=== PATIENT | male | born 1975 | race Caucasian/White ===

== ENCOUNTER 2018-09-22 06:41 | Emergency (ER) | payer OTHER ==
[~2018-09-22] VITALS: Ht 167.6 cm; Wt 117.5 kg
[~2018-09-22 06:41] MED LIST: DEXT30CA6 PO; HYDR-3165 PO; ONDA4TAB10 PO
[2018-09-22] MEDS ORDERED: IV NORMAL SALINE 1,000ML 1,000 ML IV SCH (06:57)
[2018-09-22] MEDS ORDERED: FAMOTIDINE 20 MG/2 ML VIAL IVP ONE (07:00)
[2018-09-22] MEDS ORDERED: ONDANSETRON PF 4 MG/2 ML VIAL. IV ONE (07:00)
[2018-09-22] MEDS ORDERED: LIDO:MAALOX 1:1 20 ML SINGLE DOSE. PO ONE (07:00)
--- NOTE | 2018-09-22 07:07 | PHYS DOC ---
Past History Past Medical History: Other Past Surgical History: No Surgical History Smoking: Non-smoker Alcohol Use: Rarely Drug Use: None Adult General Chief Complaint Chief Complaint: ABDOMINAL PAIN [facility] HPI Patient is a 42 year old male who presents with complaining of abdominal pain and nausea and vomiting and diarrhea. Patient complaining of constant epigastric pain since this morning with one episode of vomiting and 2 episodes of diarrhea. Patient states the pain is a constant pain with radiation to shoulder. Patient rated his pain 8/10. Patient states he had a greasy food last night. Patient denies urinary symptoms, chest pain, shortness of breath, fever and chills. Patient states he had previous evaluation for gastritis with EGD but he is not sure if he had gallbladder ultrasound. Review of Systems Review of Systems Constitutional: Denies fever or chills [] Eyes: Denies change in visual acuity, redness, or eye pain [] HENT: Denies nasal congestion or sore throat [] Respiratory: Denies cough or shortness of breath [] Cardiovascular: No additional information not addressed in HPI [] GI: Reports abdominal pain, nausea, vomiting, diarrhea [] : Denies dysuria or hematuria [] Musculoskeletal: Denies back pain or joint pain [] Integument: Denies rash or skin lesions [] Neurologic: Denies headache, focal weakness or sensory changes [] Endocrine: Denies polyuria or polydipsia [] All other systems were reviewed and found to be within normal limits, except as documented in this note. Current Medications Current Medications Current Medications Medications (Trade) Dose Ordered Sig/Ariana Start Time Stop Time Status Last Admin Dose Admin Famotidine (Pepcid Vial) 20 mg 1X ONCE 09/22/18 07:00 09/22/18 07:01 DC Multi-Ingredient Mouthwash/Gargle (Gi Cocktail) 20 ml 1X ONCE 09/22/18 07:00 09/22/18 07:01 DC Ondansetron HCl (Zofran) 4 mg 1X ONCE 09/22/18 07:00 09/22/18 07:01 DC Sodium Chloride 1,000 ml @ 1,000 mls/hr Q1H 09/22/18 06:57 09/22/18 07:56 Allergies Allergies Allergies Coded Allergies Type Severity Reaction Last Updated Verified No Known Drug Allergies 07/06/14 No Physical Exam Physical Exam Constitutional: Well developed, well nourished, moderate distress, non-toxic appearance, morbidly obese. [] HENT: Normocephalic, atraumatic, oropharynx moist, no oral exudates, nose normal. [] Eyes: PERRLA, EOMI, conjunctiva normal, no discharge. [] Neck: Normal range of motion, no tenderness, supple, no stridor. [] Cardiovascular:Heart rate regular rhythm, no murmur [] Lungs & Thorax: Bilateral breath sounds clear to auscultation [] Abdomen: Bowel sounds normal, soft, no tenderness, epigastric guarding, no masses, no pulsatile masses. [] Skin: Warm, dry, no erythema, no rash. [] Back: No tenderness, no CVA tenderness. [] Extremities: No tenderness, no cyanosis, no clubbing, ROM intact, no edema. [] Neurologic: Alert and oriented X 3, normal motor function, normal sensory function, no focal deficits noted. [] Psychologic: Affect normal, judgement normal, mood normal. [] EKG EKG [] Radiology/Procedures Radiology/[place] [address] IMAGING REPORT Signed PATIENT: GINNA ROMAN ACCOUNT: [id number] : 1975 LOCATION: ER AGE: 42 SEX: M EXAM STATUS: REG ER ORD. PHYSICIAN: SERA CHAN MD REASON: abdominal pain and nausea and vomiting PROCEDURE: ABDOMEN LTD Limited abdominal ultrasound History: abd pain/n/v Findings: Liver is enlarged with coarse echogenicity, compatible with fatty infiltration. This does limit evaluation for hepatic mass. Pancreas not seen. Inferior vena cava not seen. The structures are secured by bowel gas. Gallbladder is poorly distended, no definite gallstone. Common bile duct is obscured by bowel gas. Right kidney measures 11.7 cm without hydronephrosis. IMPRESSION: 1. Hepatomegaly with steatosis. 2. Poor visualization of midline structures due to bowel gas. 3. Limited gallbladder evaluation due to contracted state. No definite gallstone. Electronically signed by: Jose Holloway MD (09/22/2018 9:36 AM) [facility] DICTATED AND SIGNED BY: JOSE HOLLOWAY MD DATE: 09/22/18 0936 CC: SERA CHAN MD; SHAW MCGARRY ~ Course & Med Decision Making Course & Med Decision Making Pertinent Labs and Imaging studies reviewed. (See chart for details) Evaluation of patient in ER showed 42-year-old male patient with complaining of abdominal pain and nausea and vomiting since this morning. Patient treated with IV fluids and GI cocktail, Zofran, Reglan, fentanyl and Toradol and felt better. Gallbladder ultrasound did not show stone. Plan to discharge patient home to diagnose of gastroenteritis. Dragon Disclaimer Dragon Disclaimer This electronic medical record was generated, in whole or in part, using a voice recognition dictation system. Departure Departure: Impression: Primary Impression: Acute gastroenteritis Additional Impressions: Dehydration Elevated liver function tests Fatty liver Morbid obesity with BMI of 40.0-44.9, adult Disposition: 01 HOME, SELF-CARE (at 0936) Condition: IMPROVED Referrals: SHAW MCGARRY (PCP) Patient Instructions: Viral Gastroenteritis Additional Instructions: Drink plenty of liquids Follow-up with your primary care physician in 3-5 days Return to ER if not getting better Do not eat solid food today Scripts Ranitidine Hcl (ZANTAC) 150 Mg Tablet 1 TAB PO BID for dyspepcia, #14 TAB 0 Refills Prov: SERA CHAN MD 09/22/18 Tramadol Hcl (ULTRAM) 50 Mg Tablet 50 MG PO PRN Q6HRS PRN for PAIN, #14 TAB Prov: SERA CHAN MD 09/22/18 Problem Qualifiers SERA CHAN MD Sep 22, 2018 07:07
[2018-09-22 07:25] LABS: BASO # 0.1 x10^3/uL (0.0-0.2); BASO % 1 % (0-3); EOS # 0.2 x10^3/uL (0.0-0.7); EOS % 2 % (0-3); HEMATOCRIT 54.6 % (39.0-53.0); HEMOGLOBIN 18.5 g/dL (13.0-17.5); LYMPH # 1.5 x10^3/uL (1.0-4.8); LYMPH % 17 % (24-48); MEAN CORPUSCULAR HEMOGLOBIN 30 pg (25-35); MEAN CORPUSCULAR HGB CONC 34 g/dL (31-37); MEAN CORPUSCULAR VOLUME 87 fL (79-100); MONO # 1.2 x10^3/uL (0.0-1.1); MONO % 13 % (0-9); NEUT # 6.1 x10^3uL (1.8-7.7); NEUT % 67 % (31-73); PLATELET COUNT 200 x10^3/uL (140-400); RED BLOOD COUNT 6.25 x10^6/uL (4.30-5.70); RED CELL DISTRIBUTION WIDTH 13.6 % (11.5-14.5); WHITE BLOOD COUNT 9.1 x10^3/uL (4.0-11.0)
[2018-09-22 07:37] LABS: ALBUMIN 3.9 g/dL (3.4-5.0); ALBUMIN/GLOBULIN RATIO 1.1 (1.0-1.7); CALCIUM 8.6 mg/dL (8.5-10.1); CREATININE 1.1 mg/dL (0.7-1.3); GFR 73.8; POTASSIUM 4.1 mmol/L (3.5-5.1); TOTAL BILIRUBIN 0.5 mg/dL (0.2-1.0); TOTAL PROTEIN 7.4 g/dL (6.4-8.2)
[2018-09-22] MEDS ORDERED: TRAM-48 PO (08:00)
[2018-09-22] MEDS ORDERED: RANI150T21 PO (08:00)
[2018-09-22] MEDS ORDERED: KETOROLAC 30 MG/ML VIAL. IV ONE (08:00)
[2018-09-22] MEDS ORDERED: IV NORMAL SALINE 1,000ML 1,000 ML IV ONE (08:15)
[2018-09-22] MEDS ORDERED: METOCLOPRAMIDE HCL 10 MG/2 ML VIAL. IV ONE (08:15)
[2018-09-22 08:41] LABS: BACTERIA,URINE FEW /HPF (0-FEW); BILIRUBIN,URINE NEG (NEG); CLARITY,URINE CLEAR; COLOR,URINE AMBER; GLUCOSE,URINE NEG (NEG); NITRITE,URINE NEG (NEG); RBC,URINE OCC /HPF (0-2); SQUAMOUS EPITHELIAL CELL,UR FEW /LPF; UROBILINOGEN,URINE 0.2 mg/dL (0.2 mg/dL)
--- NOTE | 2018-09-22 09:39 | RAD ---
Limited abdominal ultrasound History: abd pain/n/v Findings: Liver is enlarged with coarse echogenicity, compatible with fatty infiltration. This does limit evaluation for hepatic mass. Pancreas not seen. Inferior vena cava not seen. The structures are secured by bowel gas. Gallbladder is poorly distended, no definite gallstone. Common bile duct is obscured by bowel gas. Right kidney measures 11.7 cm without hydronephrosis. IMPRESSION: 1. Hepatomegaly with steatosis. 2. Poor visualization of midline structures due to bowel gas. 3. Limited gallbladder evaluation due to contracted state. No definite gallstone. Electronically signed by: Jose Holloway MD (09/22/2018 9:36 AM) [facility]
[2018-09-22 09:41] VITALS: BP 121/60
== END 2018-09-22 09:58 | disposition home or self-care (01) ==
LOC: ER 06:41
DX: K52.9 Noninfective gastroenteritis and colitis, unspecified (principal); E86.0 Dehydration; R79.89 Other specified abnormal findings of blood chemistry; K76.0 Fatty (change of) liver, not elsewhere classified; E66.01 Morbid (severe) obesity due to excess calories; Z68.41 Body mass index [BMI] 40.0-44.9, adult
CPT/HCPCS: 36415; 76705; 80053; 81001; 83690; 84484; 85025; 96361; 96374; 96375; 96376; 99284; J1885; J2405; J2765; J3010; J3490; J7030

== ENCOUNTER 2018-10-18 06:51 | Emergency (ER) | payer OTHER ==
[~2018-10-18] VITALS: Ht 167.6 cm; Wt 116.5 kg
[~2018-10-18 06:51] MED LIST changes: +RANI150T21 PO; +TRAM-48 PO
[2018-10-18] MEDS ORDERED: IV NORMAL SALINE 1,000ML 1,000 ML IV ONE (07:15)
[2018-10-18] MEDS ORDERED: ONDANSETRON PF 4 MG/2 ML VIAL. IV ONE (07:15)
[2018-10-18] MEDS ORDERED: MORPHINE SULFATE 4 MG/ML DISP.SYRIN. IV ONE (07:30)
[2018-10-18 07:48] LABS: BASO # 0.1 x10^3/uL (0.0-0.2); BASO % 1 % (0-3); EOS # 0.7 x10^3/uL (0.0-0.7); EOS % 7 % (0-3); HEMATOCRIT 53.5 % (39.0-53.0); HEMOGLOBIN 18.4 g/dL (13.0-17.5); LYMPH # 2.6 x10^3/uL (1.0-4.8); LYMPH % 27 % (24-48); MEAN CORPUSCULAR HEMOGLOBIN 30 pg (25-35); MEAN CORPUSCULAR HGB CONC 34 g/dL (31-37); MEAN CORPUSCULAR VOLUME 87 fL (79-100); MONO # 0.9 x10^3/uL (0.0-1.1); MONO % 10 % (0-9); NEUT # 5.3 x10^3uL (1.8-7.7); NEUT % 56 % (31-73); PLATELET COUNT 229 x10^3/uL (140-400); RED BLOOD COUNT 6.16 x10^6/uL (4.30-5.70); RED CELL DISTRIBUTION WIDTH 13.7 % (11.5-14.5); WHITE BLOOD COUNT 9.5 x10^3/uL (4.0-11.0)
[2018-10-18 08:02] LABS: ALBUMIN 3.7 g/dL (3.4-5.0); ALBUMIN/GLOBULIN RATIO 0.9 (1.0-1.7); CREATININE 1.2 mg/dL (0.7-1.3); GFR 66.4; POTASSIUM 4.3 mmol/L (3.5-5.1); TOTAL BILIRUBIN 0.5 mg/dL (0.2-1.0); TOTAL PROTEIN 7.6 g/dL (6.4-8.2)
[2018-10-18] MEDS ORDERED: LIDO:MAALOX 1:1 20 ML SINGLE DOSE. PO ONE (08:15)
--- NOTE | 2018-10-18 08:21 | PHYS DOC ---
Past History Past Medical History: GERD, Hypertension, Other Past Surgical History: No Surgical History Smoking: Non-smoker Alcohol Use: Occasionally Drug Use: None Adult General Chief Complaint Chief Complaint: ABDOMINAL PAIN HPI HPI 43-year-old male presents with epigastric abdominal pain. The pain is moderate this and cramping. It started around 4 AM. The patient has had episodes like this, but usually earlier in the night and usually when he has eaten dinner later. He has not had anything to eat since 7:30 last night. The patient has suspected gallbladder disease. He had a HIDA scan yesterday. His previous ultrasounds have not shown stones or wall thickening. The patient also has GERD and was recently treated with a 14 day course of Protonix. He stopped taking this medication 4 days ago. He denies fever or chills. Review of Systems Review of Systems Constitutional: Denies fever or chills [] Eyes: Denies change in visual acuity, redness, or eye pain [] HENT: Denies nasal congestion or sore throat [] Respiratory: Denies cough or shortness of breath [] Cardiovascular: No additional information not addressed in HPI [] GI: Epigastric abdominal pain. Denies nausea, vomiting, bloody stools or diarrhea [] : Denies dysuria or hematuria [] Musculoskeletal: Denies back pain or joint pain [] Integument: Denies rash or skin lesions [] Neurologic: Denies headache, focal weakness or sensory changes [] Endocrine: Denies polyuria or polydipsia [] All other systems were reviewed and found to be within normal limits, except as documented in this note. Current Medications Current Medications Current Medications Medications (Trade) Dose Ordered Sig/[facility] Start Time Stop Time Status Last Admin Dose Admin Morphine Sulfate (Morphine 4mg Syringe) 4 mg 1X ONCE 10/18/18 07:30 10/18/18 07:31 DC 10/18/18 07:34 4 MG Multi-Ingredient Mouthwash/Gargle (Gi Cocktail) 20 ml 1X ONCE 10/18/18 08:15 10/18/18 08:16 DC Ondansetron HCl (Zofran) 4 mg 1X ONCE 10/18/18 07:15 10/18/18 07:25 DC 10/18/18 07:32 4 MG Sodium Chloride 1,000 ml @ 1,000 mls/hr 1X ONCE 10/18/18 07:15 10/18/18 08:14 DC 10/18/18 07:31 1,000 MLS/HR Allergies Allergies Allergies Coded Allergies Type Severity Reaction Last Updated Verified No Known Drug Allergies 10/18/18 No Physical Exam Physical Exam Constitutional: Well developed, well nourished, no acute distress, non-toxic appearance. [] HENT: Normocephalic, atraumatic, bilateral external ears normal, oropharynx moist, no oral exudates, nose normal. [] Eyes: PERRLA, EOMI, conjunctiva normal, no discharge. [] Neck: Normal range of motion, no tenderness, supple, no stridor. [] Cardiovascular:Heart rate regular rhythm, no murmur [] Lungs & Thorax: Bilateral breath sounds clear to auscultation [] Abdomen: Epigastric tenderness. Bowel sounds normal, soft, no masses, no pulsatile masses. [] Skin: Warm, dry, no erythema, no rash. [] Back: No tenderness, no CVA tenderness. [] Extremities: No tenderness, no cyanosis, no clubbing, ROM intact, no edema. [] Neurologic: Alert and oriented X 3, normal motor function, normal sensory function, no focal deficits noted. [] Psychologic: Affect normal, judgement normal, mood normal. [] Current Patient Data Vital Signs Vital Signs Date Time Temp Pulse Resp B/P (MAP) Pulse Ox O2 Delivery O2 Flow Rate FiO2 10/18/18 07:34 18 96 Room Air 10/18/18 07:12 97.5 77 Lab Results Laboratory Tests Test 10/18/18 07:25 White Blood Count 9.5 x10^3/uL (4.0-11.0) Red Blood Count 6.16 x10^6/uL (4.30-5.70) H Hemoglobin 18.4 g/dL (13.0-17.5) H Hematocrit 53.5 % (39.0-53.0) H Mean Corpuscular Volume 87 fL (79-100) Mean Corpuscular Hemoglobin 30 pg (25-35) Mean Corpuscular Hemoglobin Concent 34 g/dL (31-37) Red Cell Distribution Width 13.7 % (11.5-14.5) Platelet Count 229 x10^3/uL (140-400) Neutrophils (%) (Auto) 56 % (31-73) Lymphocytes (%) (Auto) 27 % (24-48) Monocytes (%) (Auto) 10 % (0-9) H Eosinophils (%) (Auto) 7 % (0-3) H Basophils (%) (Auto) 1 % (0-3) Neutrophils # (Auto) 5.3 x10^3uL (1.8-7.7) Lymphocytes # (Auto) 2.6 x10^3/uL (1.0-4.8) Monocytes # (Auto) 0.9 x10^3/uL (0.0-1.1) Eosinophils # (Auto) 0.7 x10^3/uL (0.0-0.7) Basophils # (Auto) 0.1 x10^3/uL (0.0-0.2) Sodium Level 140 mmol/L (136-145) Potassium Level 4.3 mmol/L (3.5-5.1) Chloride Level 105 mmol/L (98-107) Carbon Dioxide Level 24 mmol/L (21-32) Anion Gap 11 (6-14) Blood Urea Nitrogen 18 mg/dL (8-26) Creatinine 1.2 mg/dL (0.7-1.3) Estimated GFR (Cockcroft-Gault) 66.4 BUN/Creatinine Ratio 15 (6-20) Glucose Level 122 mg/dL (70-99) H Calcium Level 9.0 mg/dL (8.5-10.1) Total Bilirubin 0.5 mg/dL (0.2-1.0) Aspartate Amino Transferase (AST) 34 U/L (15-37) Alanine Aminotransferase (ALT) 67 U/L (16-63) H Alkaline Phosphatase 51 U/L (46-116) Total Protein 7.6 g/dL (6.4-8.2) Albumin 3.7 g/dL (3.4-5.0) Albumin/Globulin Ratio 0.9 (1.0-1.7) L Lipase 124 U/L (73-393) EKG EKG [] Radiology/Procedures Radiology/Procedures [] Course & Med Decision Making Course & Med Decision Making Pertinent Labs and Imaging studies reviewed. (See chart for details) Patient was given 4 morphine for his pain. This improved the pain to a 5 out of 10. I then gave the patient GI cocktail which improved his pain a 2 out of 10. It is possible patient has gallbladder disease, but it does not appear to be acutely infected or obstructed based on his lab results. Since the GI cocktail seemed to improve his symptoms, I will put the patient back on Protonix until he returns to his primary care physician and determines a plan for his gallbladder. The patient is stable for discharge at this time. [] Dragon Disclaimer Dragon Disclaimer This electronic medical record was generated, in whole or in part, using a voice recognition dictation system. Departure Departure: Impression: Primary Impression: Epigastric abdominal pain Additional Impression: GERD (gastroesophageal reflux disease) Disposition: HOME, SELF-CARE Condition: IMPROVED Referrals: SHAW MCGARRY (PCP) Patient Instructions: Abdominal Pain (Nonspecific), Gastroesophageal Reflux Disease, Adult, [id number] Scripts Pantoprazole Sodium (PROTONIX) 40 Mg Tablet.dr 1 TAB PO DAILY for GERD, #30 TAB 0 Refills Prov: ALTHEA RAE DO 10/18/18 Problem Qualifiers Additional Impression: GERD (gastroesophageal reflux disease) Esophagitis presence: without esophagitis Qualified Codes: K21.9 - Gastro- esophageal reflux disease without esophagitis ALTHEA RAE DO Oct 18, 2018 08:21
[2018-10-18] MEDS ORDERED: PANT40TA3 PO (09:19)
[2018-10-18 09:45] VITALS: BP 145/73
== END 2018-10-18 09:45 | disposition home or self-care (01) ==
LOC: ER 06:51
DX: K21.9 Gastro-esophageal reflux disease without esophagitis (principal); I10 Essential (primary) hypertension
CPT/HCPCS: 36415; 80053; 83690; 85025; 96374; 96375; 99283; J2270; J2405; J7030